=== PATIENT | female | born 1985 | race Caucasian/White ===

== ENCOUNTER 2017-07-06 21:27 | Outpatient (CLI) | payer MEDICAID, OTHER | END 2017-07-06 23:57 | disposition home or self-care (01) | LOC: OBT 21:27 → L-D 21:27 | DX: O47.03 False labor before 37 completed weeks of gestation, third trimester (principal); Z3A.28 28 weeks gestation of pregnancy | CPT/HCPCS: 76817; 82731 ==

== ENCOUNTER 2017-09-17 20:55 | Inpatient (IN) | payer MEDICAID ==
[2017-09-17 22:38] LABS: RUPTURE FETAL MEMBRANES POSITIVE (NEGATIVE)
[2017-09-17] MEDS ORDERED: CARBOPROST 250 MCG INJ IM (23:30)
[2017-09-17] MEDS ORDERED: METHYLERGONOVINE 0.2 MG INJ IM (23:30)
[2017-09-17] MEDS ORDERED: LIDOCAINE 1% (MPF) 30 ML INJ INJ (23:30)
[2017-09-17] MEDS ORDERED: IBUPROFEN 600 MG TAB PO (23:30)
[2017-09-17] MEDS ORDERED: OXYTOCIN 30 UNITS/LR 500 ML IV ×2 (23:30)
[2017-09-17] MEDS ORDERED: MISOPROSTOL 200 MCG TAB PR (23:30)
[2017-09-17] MEDS ORDERED: BUTORPHANOL 2 MG INJ IV (23:30)
[2017-09-17 23:38] LABS: ADD MAN DIFF? NO
[2017-09-17 23:41] LABS: BASOPHILS % 0.3 % (0.0-2.0); EOSINOPHILS # 0.1 10^3/ul (0.0-0.5); EOSINOPHILS % 1.2 % (0.0-7.0); HEMATOCRIT 36.7 % (37.0-47.0); HEMOGLOBIN 12.3 g/dl (12.0-16.0); LYMPHOCYTES # 1.7 10^3/ul (0.8-2.9); LYMPHOCYTES % 19.7 % (15.0-51.0); MEAN CORPUSCULAR HEMOGLOBIN 30.1 pg (29.0-33.0); MEAN CORPUSCULAR HGB CONC 33.5 g/dl (32.0-37.0); MEAN CORPUSCULAR VOLUME 89.7 fl (82.0-101.0); MEAN PLATELET VOLUME 11.3 fl (7.4-10.4); MONOCYTE # 0.6 10^3/ul (0.3-0.9); MONOCYTES % 7.4 % (0.0-11.0); NEUTROPHIL # 6.1 10^3/ul (1.6-7.5); NEUTROPHILS % 70.9 % (39.0-77.0); PLATELET COUNT 226 10^3/UL (140-415); RED BLOOD COUNT 4.09 10^6/ul (4.20-5.40); RED CELL DISTRIBUTION WIDTH 13.7 % (11.5-14.5)
[2017-09-17 23:41] LABS: WHITE BLOOD COUNT 8.7 10^3/ul (4.8-10.8)
[2017-09-17] MEDS: LACTATED RINGER'S 1,000 ML IV (23:48)
[2017-09-17] MEDS: AMPICILLIN 2 GM/NS (PMX) 100 ML IV (23:48)
[2017-09-17 23:56] LABS: INR 0.94; PARTIAL THROMBOPLASTIN TIME 27.5 Sec (25.0-35.0); PROTIME 12.7 Sec (11.9-14.9)
[2017-09-18 01:09] LABS: HEPATITIS B SURFACE ANTIGEN NEGATIVE (NEGATIVE)
[2017-09-18 01:19] LABS: HIV 1&2 ANTIBODY NEGATIVE (NEGATIVE)
[2017-09-18] MEDS: MINERAL OIL LIGHT 10 ML VIAL TOP (01:30)
[2017-09-18] MEDS: AMPICILLIN 1 GM/NS (PMX) 50 ML IV (04:44)
[2017-09-18] MEDS: OXYTOCIN 30 UNITS/LR 500 ML IV ×2 (07:44→11:03)
[2017-09-18 08:01] LABS: ADD MAN DIFF? NO
[2017-09-18 08:12] LABS: BASOPHILS % 0.3 % (0.0-2.0); EOSINOPHILS # 0.1 10^3/ul (0.0-0.5); HEMATOCRIT 36.5 % (37.0-47.0); HEMOGLOBIN 12.1 g/dl (12.0-16.0); LYMPHOCYTES # 1.7 10^3/ul (0.8-2.9); LYMPHOCYTES % 17.9 % (15.0-51.0); MEAN CORPUSCULAR HGB CONC 33.2 g/dl (32.0-37.0); MEAN CORPUSCULAR VOLUME 90.6 fl (82.0-101.0); MONOCYTE # 0.8 10^3/ul (0.3-0.9); MONOCYTES % 7.9 % (0.0-11.0); NEUTROPHIL # 6.9 10^3/ul (1.6-7.5); NEUTROPHILS % 72.4 % (39.0-77.0); PLATELET COUNT 212 10^3/UL (140-415); RED BLOOD COUNT 4.03 10^6/ul (4.20-5.40); RED CELL DISTRIBUTION WIDTH 13.8 % (11.5-14.5)
[2017-09-18 08:12] LABS: WHITE BLOOD COUNT 9.5 10^3/ul (4.8-10.8)
[2017-09-18] MEDS: LACTATED RINGER'S 1,000 ML IV (08:21)
[2017-09-18 08:36] LABS: ALANINE AMINOTRANSFERASE 23 IU/L (13-69); ALBUMIN 3.4 g/dl (3.3-4.9); ALKALINE PHOSPHATASE 187 IU/L (42-121); ANION GAP 16 (8-16); ASPARTATE AMINO TRANSFERASE 16 IU/L (15-46); BILIRUBIN,INDIRECT 0.2 mg/dl (0-1.1); BILIRUBIN,TOTAL 0.2 mg/dl (0.2-1.3); BLOOD UREA NITROGEN 9 mg/dl (7-20); CALCIUM 8.6 mg/dl (8.4-10.2); CARBON DIOXIDE 22 mmol/L (21-31); CHLORIDE 107 mmol/L (97-110); CREATININE 0.57 mg/dl (0.44-1.00); GLUCOSE 81 mg/dl (70-220); SODIUM 141 mmol/L (135-144); TOTAL PROTEIN 6.8 g/dl (6.1-8.1); URIC ACID 5.1 mg/dl (3.1-7.9)
[2017-09-18] MEDS ORDERED: OXYCODONE/ASPIRIN (4.88/325) TAB PO (12:30)
[2017-09-18] MEDS ORDERED: CARBOPROST 250 MCG INJ IM ×3 (12:30)
[2017-09-18] MEDS ORDERED: ZOLPIDEM 5 MG TAB PO (12:30)
[2017-09-18] MEDS ORDERED: BENZOCAINE 20% 56 ML SPRAY TOP (12:30)
[2017-09-18] MEDS ORDERED: METHYLERGONOVINE 0.2 MG INJ IM ×3 (12:30)
[2017-09-18] MEDS: IBUPROFEN 600 MG TAB PO ×3 (12:30→21:57)
[2017-09-18] MEDS ORDERED: WITCH HAZEL/GLYCERIN PAD PR (12:30)
[2017-09-18] MEDS ORDERED: MISOPROSTOL 200 MCG TAB PR ×3 (12:30)
[2017-09-18] MEDS ORDERED: OXYTOCIN 30 UNITS/LR 500 ML IV ×3 (12:30)
[2017-09-18] MEDS: LANOLIN 7 GM TUBE TOP (15:23)
[2017-09-18] MEDS: BUPIVACAINE 0.5% (SDV) 30 ML INJ INJ (18:15)
[2017-09-18] MEDS ORDERED: ONDANSETRON 4 MG INJ (18:19)
[2017-09-18] MEDS ORDERED: CEFAZOLIN 1 GM INJ (18:19)
[2017-09-18] MEDS ORDERED: BUPIVACAINE 0.75%/DEXT (SPINAL) 2 ML INJ (18:20)
[2017-09-18] MEDS ORDERED: METOCLOPRAMIDE 10 MG INJ IV (20:00)
[2017-09-18] MEDS ORDERED: MIDAZOLAM 1 MG/ML 2 ML INJ IV (20:00)
[2017-09-18] MEDS ORDERED: OXYCODONE/ACETAMINOPHEN (5/325) TAB PO (20:00)
[2017-09-18] MEDS ORDERED: FENTAnyl 50 MCG/ML VIAL IV ×3 (20:00)
[2017-09-18] MEDS ORDERED: DIPHENHYDRAMINE 50 MG INJ IV (20:00)
[2017-09-18] MEDS: MEPERIDINE 25 MG INJ IV (20:25)
[2017-09-18] MEDS: ONDANSETRON 4 MG INJ IV (20:26)
[2017-09-18] MEDS: SENNA/DOCUSATE NA (8.6MG/50MG) TAB PO (21:00)
[2017-09-18] MEDS: OXYCODONE/ACETAMINOPHEN (5/325) TAB PO ×2 (21:05→21:57)
[2017-09-18 22:10] LABS: RAPID PLASMA REAGIN NONREACTIVE (NR)
[2017-09-19] MEDS: OXYCODONE/ASPIRIN (4.88/325) TAB PO ×4 (03:15→20:45)
[2017-09-19] MEDS: IBUPROFEN 600 MG TAB PO ×3 (05:17→17:19)
[2017-09-19 08:56] LABS: ADD MAN DIFF? NO
[2017-09-19] MEDS: SENNA/DOCUSATE NA (8.6MG/50MG) TAB PO ×2 (08:56→20:45)
[2017-09-19 08:58] LABS: BASOPHILS % 0.3 % (0.0-2.0); EOSINOPHILS # 0.1 10^3/ul (0.0-0.5); EOSINOPHILS % 0.9 % (0.0-7.0); HEMATOCRIT 33.1 % (37.0-47.0); HEMOGLOBIN 11.1 g/dl (12.0-16.0); LYMPHOCYTES # 1.9 10^3/ul (0.8-2.9); MEAN CORPUSCULAR HEMOGLOBIN 30.4 pg (29.0-33.0); MEAN CORPUSCULAR HGB CONC 33.5 g/dl (32.0-37.0); MEAN CORPUSCULAR VOLUME 90.7 fl (82.0-101.0); MEAN PLATELET VOLUME 10.9 fl (7.4-10.4); MONOCYTE # 0.5 10^3/ul (0.3-0.9); MONOCYTES % 5.7 % (0.0-11.0); NEUTROPHIL # 6.9 10^3/ul (1.6-7.5); NEUTROPHILS % 72.8 % (39.0-77.0); PLATELET COUNT 185 10^3/UL (140-415); RED BLOOD COUNT 3.65 10^6/ul (4.20-5.40); RED CELL DISTRIBUTION WIDTH 14.2 % (11.5-14.5)
[2017-09-19 08:58] LABS: WHITE BLOOD COUNT 9.5 10^3/ul (4.8-10.8)
[2017-09-19 15:58] LABS: ADD UMIC NO; UR ASCORBIC ACID NEGATIVE (NEGATIVE); UR BILIRUBIN (Dip) NEGATIVE (NEGATIVE); UR BLOOD (Dip) NEGATIVE (NEGATIVE); UR CLARITY CLEAR (CLEAR); UR COLOR YELLOW (YELLOW); UR GLUCOSE (Dip) NEGATIVE (NEGATIVE); UR KETONES (Dip) 2+ mg/dL (NEGATIVE); UR LEUKOCYTE ESTERASE (Dip) NEGATIVE Leu/ul (NEGATIVE); UR NITRITE (Dip) NEGATIVE (NEGATIVE); UR SPECIFIC GRAVITY (Dip) 1.016 (1.003-1.030); UR TOTAL PROTEIN (Dip) NEGATIVE (NEGATIVE); UR UROBILINOGEN (Dip) NEGATIVE (NEGATIVE)
[2017-09-20] MEDS: IBUPROFEN 600 MG TAB PO ×3 (00:14→11:56)
[2017-09-20] MEDS: SENNA/DOCUSATE NA (8.6MG/50MG) TAB PO (08:54)
[2017-09-20] MEDS: OXYCODONE/ASPIRIN (4.88/325) TAB PO (08:54)
[2017-09-20] MEDS: DIPHTH/TET/ACEL PERTUSS (ADULT) 0.5 ML VIAL IM* (09:00)
[2017-09-22 12:33] LABS: RUBELLA ANTIBODY - IGM <20.00 AU/mL
== END 2017-09-20 17:05 | disposition home or self-care (01) | DRG 767 ==
LOC: OBT 20:55 → L-D 20:56 → PP1 09-18 12:16 → L-D 21:23 → OBT 22:39 → L-D 22:39
PROVIDERS: Obstetrics & Gynecology
PROC: 10E0XZZ Delivery of Products of Conception, External Approach (ICD-10-PCS; principal; 2017-09-18 18:00)
PROC: 0UB70ZZ Excision of Bilateral Fallopian Tubes, Open Approach (ICD-10-PCS; 2017-09-18 18:00)
DX: O80 Encounter for full-term uncomplicated delivery (principal); Z3A.39 39 weeks gestation of pregnancy; Z37.0 Single live birth; Z30.2 Encounter for sterilization
CPT/HCPCS: 80053; 81003; 84112; 84560; 85025; 85610; 85730; 86592; 86703; 86762; 86900; 86901; 87340; 88302